=== PATIENT | male | born 1960 | race Caucasian/White ===

== ENCOUNTER 2023-02-03 16:50 | Emergency (ER) | payer OTHER ==
[2023-02-03] MEDS ORDERED: Ibuprofen 200 MG TAB ONE (18:31)
[2023-02-03] MEDS ORDERED: Cyclobenzaprine 10 MG TAB ONE (18:31)
== END 2023-02-03 18:50 | disposition home or self-care (01) ==
LOC: NAV ERS 16:50
DX: S73.102A Unspecified sprain of left hip, initial encounter (principal); S63.502A Unspecified sprain of left wrist, initial encounter; I10 Essential (primary) hypertension; G43.909 Migraine, unspecified, not intractable, without status migrainosus; E78.00 Pure hypercholesterolemia, unspecified; W18.30XA Fall on same level, unspecified, initial encounter